=== PATIENT | male | born 1990 | race African-American/Black ===

== ENCOUNTER 2017-05-11 18:24 | Emergency (ER) | payer SELFPAY ==
[~2017-05-11] VITALS: Ht 175.3 cm; Wt 64.0 kg
[2017-05-11 18:27] VITALS: BP 116/73
== END 2017-05-11 19:25 | disposition left against medical advice (07) ==
LOC: ER 18:54
DX: Z53.21 Procedure and treatment not carried out due to patient leaving prior to being seen by health care provider (principal)